=== PATIENT | male | born 2005 | race Caucasian/White ===

== ENCOUNTER 2023-02-02 15:05 | Outpatient (REF) | payer BC, OTHER, SELFPAY ==
--- NOTE | ~2023-02-02 | MR_ITS ---
EXAMINATION: MR SHOULDER WITHOUT CONTRAST, RIGHT CLINICAL INFORMATION: Shoulder pain COMPARISON: None available. TECHNIQUE: MRI of the shoulder without contrast was performed on a high-field scanner. FINDINGS: ROTATOR CUFF: Supraspinatus, infraspinatus, teres minor, subscapularis are intact. No muscle atrophy or fatty infiltration. BICEPS: Intact CORACOACROMIAL ARCH: The undersurface of the acromion is flat with no subacromial spur. The acromioclavicular joint is normal. LABRUM/CAPSULE: No displaced labral tear.. No paralabral cyst. GLENOHUMERAL JOINT/MARROW: Anatomic alignment. No acute fracture. Small low T1/T2 signal focus in the glenoid, probable sclerotic focus, nonspecific, perhaps bone island. No significant effusion. Quadrilateral space, suprascapular and spinoglenoid notch appear unremarkable. MR/MR shoulder RT wo con IMPRESSION: 1. No evidence of rotator cuff tear. 2. No displaced labral tear is seen. No paralabral cyst. 3. Additional findings and details as above.
== END 2023-02-02 15:06 | disposition home or self-care (01) ==
LOC: HO.MRI 15:05
PROVIDERS: Visit Provider Family Medicine
DX: M25.511 Pain in right shoulder (principal)
CPT/HCPCS: 73221